=== PATIENT | female | born 1960 | race Caucasian/White ===

== ENCOUNTER 2019-10-25 06:28 | Day surgery (SDC) | payer BC, MEDICARE ==
[~2019-10-25] VITALS: Ht 160 cm; Wt 117.7 kg
[~2019-10-25 06:28] MED LIST: ATOR10TA9 PO; METF500T17 PO; OMEP-110 PO
[2019-10-25] MEDS ORDERED: LACTATED RINGERS 1,000 ML IV SCH (06:53)
[2019-10-25 07:10] VITALS: BP 128/83
[2019-10-25] MEDS ORDERED: PROPOFOL 10 MG/ML, 20ML ONE ×4 (08:42)
== END 2019-10-25 10:10 | disposition home or self-care (01) ==
LOC: OUT 06:28
PROVIDERS: ATTEND Internal Medicine Gastroenterology
DX: K22.70 Barrett's esophagus without dysplasia (principal); K21.9 Gastro-esophageal reflux disease without esophagitis; K44.9 Diaphragmatic hernia without obstruction or gangrene; K31.89 Other diseases of stomach and duodenum; E11.9 Type 2 diabetes mellitus without complications; G47.33 Obstructive sleep apnea (adult) (pediatric); Z88.5 Allergy status to narcotic agent; Z88.7 Allergy status to serum and vaccine; Z79.84 Long term (current) use of oral hypoglycemic drugs; Z87.891 Personal history of nicotine dependence
CPT/HCPCS: 43239; 82962; 88305; 93005; J2704; J7120

== ENCOUNTER 2020-01-20 12:04 | Outpatient (CLI) | payer BC, MEDICARE | END 2020-01-20 23:59 | disposition home or self-care (01) | LOC: RAD 12:04 | PROVIDERS: ATTEND Internal Medicine Gastroenterology | DX: K21.9 Gastro-esophageal reflux disease without esophagitis (principal); K22.70 Barrett's esophagus without dysplasia; K44.9 Diaphragmatic hernia without obstruction or gangrene; K30 Functional dyspepsia | CPT/HCPCS: 74240 ==